=== PATIENT | male | born 1995 | race Caucasian/White ===

== ENCOUNTER 2022-10-07 15:15 | Emergency (ER) | payer BC ==
[~2022-10-07] VITALS: Ht 175.3 cm; Wt 86.2 kg
[2022-10-07] MEDS ORDERED: HYDROCODONE/APAP 10MG-325MG TAB PO ONE (15:30)
[2022-10-07 15:44] LABS: BASOPHILS % 0.3 % (0.0-1.0); EOSINOPHILS # (AUTO) 0.2 (0.0-0.4); EOSINOPHILS % 1.7 % (0.0-6.0); HEMATOCRIT 40.4 % (38.2-49.6); HEMOGLOBIN 14.3 g/dL (14.0-18.0); LYMPHOCYTES # (AUTO) 1.1 (1.0-3.2); MEAN CORPUSCULAR HEMOGLOBIN 29.1 pg (28-32); MEAN CORPUSCULAR HGB CONC 35.4 g/dL (31-35); MEAN CORPUSCULAR VOLUME 82.3 fL (81-99); MONOCYTES % 8.2 % (4.4-11.3); NEUTROPHILS # (AUTO) 10.3 (2.1-6.9); NEUTROPHILS % 80.5 % (38.7-80.0); PLATELET COUNT 246 x10e3/uL (140-360); RED BLOOD COUNT 4.91 x10e6/uL (4.3-5.7); RED CELL DISTRIBUTION WIDTH 11.9 % (11.7-14.4)
[2022-10-07 15:55] LABS: ANION GAP 13.9 mmol/L (8-16); CALCIUM 9.4 mg/dL (8.4-10.2); CREATININE, SERUM 1.03 mg/dL (0.72-1.25); POTASSIUM 3.9 mmol/L (3.5-5.1)
[2022-10-07] MEDS ORDERED: Vancomycin IV 1 GM in SODIUM CHLORIDE 0.9% 250ML 250 ML IV ONE (16:15)
[2022-10-07 17:36] LABS: CLARITY,URINE SL CLOUDY (CLEAR); COLOR,URINE YELLOW (YELLOW); KETONES,URINE NEGATIVE (NEGATIVE); LEUKOCYTE ESTERASE ,URINE NEGATIVE (NEGATIVE); NITRITE,URINE NEGATIVE (NEGATIVE); PROTEIN,URINE DIPSTICK NEGATIVE (NEGATIVE)
[2022-10-07 17:37] LABS: URINE UROBILINOGEN 0.2 mg/dL (0.2 - 1)
[2022-10-07] MEDS ORDERED: BACTRIM DS TAB1 EACH PO (18:03)
[2022-10-07] MEDS ORDERED: KEFLEX125 MG/5 M PO (18:04)
[2022-10-07] MEDS ORDERED: SILVADENE20 GM TOP ×2 (18:05→18:17)
[2022-10-07 19:36] VITALS: O2SAT 98
== END 2022-10-07 19:43 | disposition home or self-care (01) ==
LOC: ER 15:21
DX: N50.812 Left testicular pain (principal); N49.2 Inflammatory disorders of scrotum; T21.06XA Burn of unspecified degree of male genital region, initial encounter; F90.9 Attention-deficit hyperactivity disorder, unspecified type
CPT/HCPCS: 16020; 36415; 76870; 80053; 81001; 85025; 87040; 93976; 99284; J2543; J3370; J7050